=== PATIENT | male | born 2005 | race Caucasian/White ===

== ENCOUNTER 2024-12-06 07:12 | Emergency (ER) | payer BC, SELFPAY ==
[2024-12-06 07:23] VITALS: BP 112/82; PULSE 92; RESP 17; TEMP 37.8; O2SAT 99
[2024-12-06] MEDS: ONDANSETRON INJ 4 MG/2 ML VIAL IV PUSH (07:40)
[2024-12-06] MEDS: SODIUM CHLORIDE 0.9% IV 1,000 ML 999 ML IV CONT ×2 (07:40→07:51)
[2024-12-06 07:48] LABS: Basophils Percent Auto 0.5 % (0.2-1.2); Eosinophils Absolute Auto 0.2 K/mm3 (0-0.3); Eosinophils Percent Auto 2.5 % (0-4.4); Hematocrit 51.3 % (42.0-52.0); Hemoglobin 17.1 g/dL (14.0-18.0); Immature Granulocyte Absolute 0.05 K/mm3 (0.00-0.031); Immature Granulocyte Percent A 0.6 % (0-0.5); Lymphocytes Percent Auto 28.8 % (18.3-44.2); Mean Corpuscular HGB Conc 33.3 g/dl (32-36); Mean Corpuscular Hemoglobin 29.2 pg (26-34); Mean Corpuscular Volume 87.5 fl (80-100); Mean Platelet Volume 10.8 fl (7.4-10.4); Monocytes Absolute Auto 0.8 K/mm3 (0.1-0.6); Neutrophils Absolute Auto 4.6 K/mm3 (1.3-6.7); Neutrophils Percent Auto 57.6 % (45.5-73.1); Platelet Count Result 265 k/mm3 (150-375); Red Blood Count 5.86 M/mm3 (4.6-6.20); Red Cell Distribution Width 13.1 % (11.5-14.5)
[2024-12-06] MEDS: dexAMETHasone SOD PHOS INJ 10 MG/ML 1 ML VIAL IM (07:49)
[2024-12-06] MEDS: HYDROmorphone HCL INJ (*CRX) 1 MG/ML SYR 0.5 MG IV PUSH (07:50)
[2024-12-06 08:00] LABS: INR 1.1; Prothrombin Time 14.3 Seconds (11.1-14.7)
[2024-12-06 08:01] LABS: Partial Thromboplastin Time 26.7 Seconds (22.3-36.8)
[2024-12-06 08:02] LABS: Alanine Aminotransferase 21 U/L (6-50); Albumin Level 4.8 g/dL (3.5-5.1); Alkaline Phosphatase 53 U/L (38-126); Anion Gap 9 mmol/L (4-12); Aspartate Amino Transferase 19 U/L (17-59); Bilirubin,Total 1.3 mg/dL (0.2-1.3); Blood Urea Nitrogen 18 mg/dL (9-20); Calcium 9.9 mg/dL (8.4-10.2); Carbon Dioxide 33 mmol/L (22-30); Chloride 97 mmol/L (98-107); Estimated CRCL calculation 117 ml/min; Estimated Glomerular Filt Rate > 60; Glucose 94 mg/dL (65-110); Magnesium 1.9 mg/dL (1.6-2.3); Potassium 3.7 mmol/L (3.4-5.0); Sodium 139 mmol/L (137-145)
--- NOTE | 2024-12-06 08:12 | PC.NURSE ---
pt made aware we need a urine sample. pt is unable to urinate at this time. declining straight cath. call light within reach and advice to call when able to give urine specimen.
[2024-12-06 08:14] VITALS: BP 117/83; PULSE 60; RESP 18; O2SAT 100
--- NOTE | 2024-12-06 08:21 | ED.GENADULT ---
HPI - General Adult General Chief complaint: Unspecified Stated complaint: I need IV, can't eat or drink shit Time Seen by Provider: 12/06/24 07:21 History of Present Illness HPI narrative: 19-year-old male presenting to the emergency department for evaluation for increasing sore throat approximately 1 week postop tonsillectomy. This occurred at an outpatient surgery center associated with [employer]. Patient had been on a short course of steroid. Patient denies any active bleeding. Patient's primary concern is pain control and dehydration. Patient is present with his mother. Patient is alert and oriented Related Data Home Medications ?Medication ?Instructions ?Recorded ?Confirmed ?Last Taken ?Type No Home Medications 05/05/24 05/05/24 Unknown History Allergies Allergy/AdvReac Type Severity Reaction Status Date / Time Sulfa (Sulfonamide Allergy Intermediate Difficulty Verified 12/06/24 07:14 Antibiotics) Breathing Review of Systems Review of Systems: All systems reviewed & are unremarkable except as noted in HPI and below [facility] Social History Social History (Updated 05/05/24 @ 08:31 by Maura Shaw) Social History: Caffeine-none Smoking status: Never smoker Alcohol intake: current Alcohol use details: 1-4 drinks per week Substance use: never Substance use type: does not use Do You Feel Safe in your Home?: Yes Lack of Transportation: No Lack of Food: Never True Current Housing: I Have Housing Concerned About Future Housing: No Difficulty Paying Gas/Electric Bills: No Currently Unemployed: No Education: Trade/Vocational Certificate Difficulty w/ Childcare or Family Care: No Living arrangements: alone Gender identity (if verbalized by the patient): Male Agree to blood products: No Exam Narrative: APPEARANCE: Ill-appearing HEAD: normocephalic, atraumatic. EYES: PERRLA/EOMI, conjunctivae clear. Throat: Well-appearing eschars, no trismus NOSE: Normal no drainage EARS:TMS clear with good light reflex. THROAT: Pharynx clear, no exudate. NECK: Supple. No adenopathy, no masses. RESPIRATORY: Airway patent, respirations nonlabored. Clear to auscultation bilaterally, no rales, rhonchi, wheezing. CARDIOVASCULAR: Regular rate and rhythm without murmurs rubs or gallops. ABDOMINAL: Soft, nontender, nondistended, normal bowel sounds MUSCULOSKELETAL: Moves all extremities. Strength/ROM intact, No edema, No calf tenderness. NEURO: Alert. Cranial nerves II through XII intact. Grossly intact SKIN: Warm, dry. Normal Color Course Vital Signs Vital signs: Vital Signs Temperature 100.1 F H 12/06/24 07:23 Pulse Rate 92 12/06/24 07:23 Respiratory Rate 17 12/06/24 07:23 Blood Pressure 112/82 12/06/24 07:23 Pulse Oximetry 99 12/06/24 07:23 Oxygen Delivery Room Air 12/06/24 07:23 Temperature 99 F 12/06/24 11:16 Pulse Rate 61 12/06/24 11:16 Respiratory Rate 18 12/06/24 11:16 Blood Pressure 106/72 12/06/24 11:16 Pulse Oximetry 98 12/06/24 11:16 Oxygen Delivery Room Air 12/06/24 07:23 Medical Decision Making MDM Narrative Medical decision making narrative: 19-year-old male presents emergency department for evaluation for sore throat post tonsillectomy 1 week ago. Patient has no leukocytosis and hemoglobin of 17.1. INR is 1.1, patient had no acute abnormalities on his CMP. UA was negative for infection patient was negative for influenza RSV and for COVID. No acute abnormalities noted on the physical exam. Well-appearing eschars. Patient did feel improved with 2 L of IV fluids and IM dexamethasone. Patient was also treated with IV medications for pain control. Patient and mother were updated on the results of the workup they were comfortable with the plan for outpatient follow-up. All questions concerns were addressed. Patient does have additional narcotic pain medications at the pharmacy for pickup. Differential Diagnosis Differential Diagnosis: Dehydration, postop pain, influenza, RSV, COVID Vital Signs Vital Signs: Vital Signs Temperature 100.1 F H 12/06/24 07:23 Pulse Rate 92 12/06/24 07:23 Respiratory Rate 17 12/06/24 07:23 Blood Pressure 112/82 12/06/24 07:23 Pulse Oximetry 99 12/06/24 07:23 Oxygen Delivery Room Air 12/06/24 07:23 Temperature 99 F 12/06/24 11:16 Pulse Rate 61 12/06/24 11:16 Respiratory Rate 18 12/06/24 11:16 Blood Pressure 106/72 12/06/24 11:16 Pulse Oximetry 98 12/06/24 11:16 Oxygen Delivery Room Air 12/06/24 07:23 Lab Data Lab results reviewed: Yes I reviewed the patient's lab results. 12/06/24 07:39 12/06/24 07:39 Labs: Lab Results 12/06/24 12/06/24 Range/Units 07:39 08:59 WBC 8.0 (4.5-10.0) K/mm3 RBC 5.86 (4.6-6.20) M/mm3 Hgb 17.1 (14.0-18.0) g/dL Hct 51.3 (42.0-52.0) % MCV 87.5 (80-100) fl MCH 29.2 (26-34) pg MCHC 33.3 (32-36) g/dl RDW 13.1 (11.5-14.5) % Plt Count 265 (150-375) k/mm3 MPV 10.8 H (7.4-10.4) fl Immature Gran % (Auto) 0.6 H (0-0.5) % Neut % (Auto) 57.6 (45.5-73.1) % Lymph % (Auto) 28.8 (18.3-44.2) % [place] % (Auto) 10.0 H (2.6-8.5) % Eos % (Auto) 2.5 (0-4.4) % Baso % (Auto) 0.5 (0.2-1.2) % Lymph # (Auto) 2.30 (0.9-3.2) K/mm3 [place] # (Auto) 0.8 H (0.1-0.6) K/mm3 Eos # (Auto) 0.2 (0-0.3) K/mm3 Baso # (Auto) 0.0 (0.0-0.1) K/mm3 Abs Immat Gran (auto) 0.05 H (0.00-0.031) K/mm3 Absolute Neuts (auto) 4.6 (1.3-6.7) K/mm3 Absolute Nucleated RBC 0.000 (0.0-0.012) K/mm3 Nucleated RBC % 0.0 (0.0-0.2) % PT 14.3 (11.1-14.7) Seconds INR 1.1 APTT 26.7 (22.3-36.8) Seconds Sodium 139 (137-145) mmol/L Potassium 3.7 (3.4-5.0) mmol/L Chloride 97 L (98-107) mmol/L Carbon Dioxide 33 H (22-30) mmol/L Anion Gap 9 (4-12) mmol/L BUN 18 (9-20) mg/dL Creatinine 0.98 (0.7-1.3) mg/dL Estim Creat Clear Calc 117 ml/min Estimated GFR > 60 (59 - ) Glucose 94 (65-110) mg/dL Calcium 9.9 (8.4-10.2) mg/dL Magnesium 1.9 (1.6-2.3) mg/dL Total Bilirubin 1.3 (0.2-1.3) mg/dL AST 19 (17-59) U/L ALT 21 (6-50) U/L Alkaline Phosphatase 53 (38-126) U/L Total Protein 9.0 H (6.3-8.2) g/dL Albumin 4.8 (3.5-5.1) g/dL Urine Color Yellow (Yellow) Urine Appearance Clear (Clear) Urine pH 7.5 (5.0-9.0) Ur Specific [place] 1.020 (1.001-1.035) Urine Protein Negative (Negative) mg/dL Urine Glucose (UA) Negative (Negative) mg/dL Urine Ketones Trace H (Negative) mg/dL Ur Blood (Man) Negative (Negative) Urine Nitrate Negative (Negative) Urine Bilirubin Negative (Negative) Urine Urobilinogen 0.2 (<2.0) mg/dL Leukocyte Esterase Rfl Negative (Negative) GIANNA/UL Influenza A (RT-PCR) Negative (Negative) Influenza B (RT-PCR) Negative (Negative) RSV (RT-PCR) Negative (Negative) SARS-CoV-2 RNA (RT-PCR) Negative (Negative) Discharge Plan Discharge Clinical Impression: Post-operative pain, Dehydration Patient Disposition: Home, Self-Care Condition: Stable Instructions: Antibiotic Form, Clear Liquid Diet (ED), Tonsillectomy (DC) Additional Instructions: Home medications for pain control as directed. Do recommend a clear liquid diet. Continue have close follow-up with your surgeon. If you have any worsening symptoms and please call or return to the emergency department. Patient Language: Israeli Prescriptions: No Action No Home Medications Follow-up/Referrals: Lucila,Maulik Tomas MD [Primary Care Provider] -
[2024-12-06 08:23] LABS: Influenza A QL RT-PCR Negative (Negative); Influenza B QL RT-PCR Negative (Negative); RSV RNA, RT-PCR Negative (Negative); SARS-CoV-2 RNA PCR Negative (Negative)
[2024-12-06 09:10] LABS: Add Urine Microscopic? NO; Appearance Urine Clear (Clear); Bilirubin Urine Negative (Negative); Blood Urine Negative (Negative); Color Urine Yellow (Yellow); Glucose Urine UA Negative (Negative); Ketones Urine Trace mg/dL (Negative); Leukocyte Esterase Ur Negative LEU/UL (Negative); Nitrate Urine Negative (Negative); Protein Urine Negative (Negative); Urobilinogen Urine 0.2 mg/dL (<2.0); pH Urine 7.5 (5.0-9.0)
[2024-12-06 09:31] VITALS: BP 118/72; PULSE 61; RESP 16; O2SAT 97
[2024-12-06] MEDS: HYDROcodone/acetaminophen (*CRX) 10-325 MG TABLET 1 TAB PO (11:11)
[2024-12-06 11:16] VITALS: BP 106/72; PULSE 61; RESP 18; TEMP 37.2; O2SAT 98
--- OUTSIDE RECORDS SUMMARY | 2024-12-08 15:32 | XMS_ITS | Referral Summary ---
Author Organization [facility] [place] [address] Address [address] [place] [id number] Care Team Providers Care Home Restoration Service Supervisor Name Role Phone Unknown, Notinfile Primary Care Provider Unavail able Allergies No known active allergies Medications neomycin-polymy ambar-dexAMETHaso ne (MAXITROL) 3.5mg/mL-10,000 unit/mL-0.1 % ophthalmic suspension INSTILL 1 DROP INTO BOTH EYES THREE TIMES DAILY. SHAKE WELL BEFORE USE. 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 Gender Identity Not on file Sexual Orientation Not on file Last Filed Vital Signs Vital Sign Reading Time Taken Comments Blood Pressure 108/74 11/07/2022 11:41 AM WAREHOUSE CHECKER Pulse 68 11/07/2022 11:41 AM WAREHOUSE CHECKER Temperature 36.4 ??C (97.5 ??F) 11/07/2022 11:[address] Respiratory Rate 16 11/07/2022 11:41 AM WAREHOUSE CHECKER Oxygen Saturation 99% 11/07/2022 11:41 AM WAREHOUSE CHECKER Inhaled Oxygen Concentration - - Weight 83.9 kg (185 lb) 11/07/2022 11:41 AM WAREHOUSE CHECKER Height 186.7 cm (6' 1.5 ) 11/07/2022 11:41 AM CS T Body Mass Index 24.08 11/07/2022 11:41 AM WAREHOUSE CHECKER Plan of Treatment Not on file Insurance [facility] [employer] [facility] [employer] Care Teams Home Restoration Service Supervisor Relationship Specialty Start Date End Date Unknown, Notinfile PCP - General 10/20/22
--- OUTSIDE RECORDS SUMMARY | 2024-12-08 15:32 | XMS_ITS | Clinical Summary ---
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 ROASTER Gender Identity Not on file Sexual Orientation Not on file Obstetrics History Last Filed Vital Signs Vital Sign Reading Time Taken Comments Blood Pressure 108/74 11/07/2022 11:41 AM WET ROASTER Pulse 68 11/07/2022 11:41 AM WET ROASTER Temperature 36.4 ??C (97.5 ??F) 11/07/2022 11:[address] Respiratory Rate 16 11/07/2022 11:41 AM WET ROASTER Oxygen Saturation 99% 11/07/2022 11:41 AM WET ROASTER Inhaled Oxygen Concentration - - Weight 83.9 kg (185 lb) 11/07/2022 11:41 AM WET ROASTER Height 186.7 cm (6' 1.5 ) 11/07/2022 11:41 AM CS T Body Mass Index 24.08 11/07/2022 11:41 AM WET ROASTER Plan of Treatment Health Maintenance Due Date Last Done Comments Depression Screening 2003 Hepatitis C Screening 2003 DTaP/Tdap/Td Vaccine (1 - Tdap) 2014 Varicella Vaccines (1 of 2 - 13+ 2-dose series) 2016 HPV Vaccines (1 - Male 3-dos e series) 2018 Meningococcal B Vaccine (1 o f 2 - Patient Seeks Protection) 2019 Hepatitis B Screening 2021 Regular Well Visit/Exam 18-64 2021 Influenza Vaccine (#1) 2024 Meningococcal Vaccine Aged Out No zoila ramya eligible based on patient's age to complete this topic Pneumococcal vaccine <65 Aged Out No longer eligible based on patient's age to complete this topic Insurance [facility] [employer] [facility] [employer] Address: [place] [id number] [place] [address] [facility] [employer] [facility] HMO/PPO Address: [address] [place] [address] Care Teams Winter Sports Manager Relationship Specialty Start Date End Date Unknown, Notinfile PCP - General 10/20/22
== END 2024-12-06 11:18 | disposition home or self-care (01) ==
PROVIDERS: Emergency Provider Emergency Medicine; PCP Family Medicine
DX: G89.18 Other acute postprocedural pain (principal); E86.0 Dehydration; Z20.822 Contact with and (suspected) exposure to COVID-19
CPT/HCPCS: 36415; 80053; 81003; 83735; 85025; 85610; 85730; 87637; 96361; 96372; 96374; 96375; 96376; 99284; A9270; J1100; J1171; J2405; J7030